=== PATIENT | female | born 1980 | race Caucasian/White ===

== ENCOUNTER 2017-07-07 08:25 | Emergency (ER) | payer OTHER ==
[2017-07-07 08:32] VITALS: BP 104/68; PULSE 106; TEMP 98.6; BMI 24.5
--- NOTE | 2017-07-07 09:21 | PDOC ---
History of Present Illness - General Chief Complaint: Cold Symptoms Stated Complaint: R/O FLU Time Seen by Provider: 07/07/17 08:55 History Source: Patient Exam Limitations: No Limitations - History of Present Illness Initial Comments: 07/07/17 09:18 36 yr female with c/o low back pain lower abd pain, sore throat started yesterday. Pt has no past medical history or allergies. pt took tylenol yesterday. Pt states her daughter and son with similair symptoms. Severity: reports: mild Possible Cause: Yes: no prior episodes Past History - Past Medical History Allergies/Adverse Reactions: Allergies Allergy/AdvReac Type Severity Reaction Status Date / Time No Known Allergies Allergy Verified 07/07/17 08:29 Home Medications: Ambulatory Orders Cephalexin Monohydrate [Keflex -] 250 mg PO Q6H #28 capsule 07/07/17 Ondansetron [Zofran Odt -] 4 mg SL TID PRN #21 od.tablet 07/07/17 Asthma: No Cancer: No Cardiac Disorders: No COPD: No Diabetes: No HTN: No Seizures: No Thyroid Disease: No - Suicide/Smoking/Psychosocial Hx Smoking History: Never smoked Have you smoked in the past 12 months: Yes Number of Cigarettes Smoked Daily: 2 If you are a former smoker, when did you quit?: 05/01/11 Information on smoking cessation initiated: Yes 'Breaking Loose' booklet given: 07/07/17 Hx Alcohol Use: No Drug/Substance Use Hx: No Substance Use Type: None Hx Substance Use Treatment: No Respiratory Specific PMHX - Complaint Specific PMHX Angina: No Bronchitis: No Pneumonia: No Pulmonary Embolus: No TB (Tuberculosis): No Review of Systems - Review of Systems Able to Perform ROS?: Yes Is the patient limited Croatian proficient: No *Physical Exam - Vital Signs Last Vital Signs Temp Pulse Resp BP Pulse Ox 98.6 F 106 H 18 104/68 100 07/07/17 08:30 07/07/17 08:30 07/07/17 08:30 07/07/17 08:30 07/07/17 08:30 - Physical Exam General Appearance: Yes: Nourished, Appropriately Dressed HEENT: positive: EOMI, TITUS, Pharyngeal Erythema, Tonsillar Erythema. negative : Tonsillar Exudate Neck: positive: Supple. negative: Lymphadenopathy (R), Lymphadenopathy (L) Respiratory/Chest: positive: Lungs Clear, Normal Breath Sounds. negative: Chest Tender Cardiovascular: positive: Regular Rhythm, Regular Rate Gastrointestinal/Abdominal: positive: Normal Bowel Sounds, Soft Musculoskeletal: positive: Normal Inspection Extremity: positive: Normal Capillary Refill, Normal Inspection, Normal Range of Motion Integumentary: positive: Normal Color, Dry, Warm Neurologic: positive: hypoid gear tester II-XII NML intact, Fully Oriented, Alert, Normal Mood/ Affect, Normal Response, Motor Strength 5/5 Medical Decision Making - Medical Decision Making 07/07/17 09:24 cc: back pain chills, sore throat headache denies urinary complaints LMP 2 weeks ago denies any vaginal discharge neg nvd will check for strep and influenza, pt did not have flu vaccine this year 07/07/17 09:43 negative strep and no FLU reagent in the lab, the lab notified us. so we are unable to do the FLU test, I informed the patient of this notification. pt is afebrile I have discussed with pt she most likely has UTI as she has blood in the urine and has vague low back pain . no evidence of pyelo. pt is non toxic flu like appearing. I offered tamiflu pt refused. 07/07/17 11:38 *DC/Admit/Observation/Transfer Diagnosis at time of Disposition: Viral illness Urinary tract infection Qualifiers: Urinary tract infection type: acute cystitis Hematuria presence: with hematuria Qualified Code(s): N30.01 - Acute cystitis with hematuria - Discharge Dispostion Disposition: HOME Condition at time of disposition: Good - Prescriptions Prescriptions: Cephalexin Monohydrate [Keflex -] 250 mg PO Q6H #28 capsule Ondansetron [Zofran Odt -] 4 mg SL TID PRN #21 od.tablet PRN Reason: Nausea And/Or Vomiting - Referrals - Patient Instructions Additional Instructions: take the antibiotic for 7 days as directed get pleanty of rest and take tylenol or motrin for pain as needed follow with [facility] in 2-3 days for follow up return if any worsening symptoms - Post Discharge Activity
[2017-07-07] MEDS ORDERED: ONDANSETRON *ODT* 4 MG TABLET SL ONE (09:22)
[2017-07-07] MEDS ORDERED: ONDANSETRON *ODT* 4 MG TABLET ONE (09:25)
[2017-07-07 09:33] LABS: HCG,QUALITATIVE URINE NEGATIVE
[2017-07-07 10:39] LABS: URINE APPEARANCE SLCLOUDY; URINE BILIRUBIN NEGATIVE (NEGATIVE); URINE BLOOD 2+ (NEGATIVE); URINE COLOR LTYELLOW; URINE GLUCOSE (UA) NEGATIVE (NEGATIVE); URINE KETONE NEGATIVE (NEGATIVE); URINE LEUK ESTERASE NEGATIVE (NEGATIVE); URINE NITRITE NEGATIVE (NEGATIVE); URINE PROTEIN NEGATIVE (NEGATIVE); URINE UROBILINOGEN NEGATIVE mg/dL (0.2-1.0)
[2017-07-07 10:55] LABS: EPI CELLS RARE /HPF (FEW)
--- NOTE | 2017-07-09 13:58 | PDOC ---
Patient Follow-up (Call Back) - Post ED Follow - Up Condition at time of discharge: Good Disposition at time of original discharge: HOME Reason for Call Back: Abnwl. Microbiology (group C strep on throat culture. pt. currently on keflex for UTI. Pt reports feeling much better and does not have a sore throat at this time. Will not change abx at this time. Told pt to continue with keflex and if she has any changes in her symptoms to see her PCP or return to the ED.)
== END 2017-07-07 11:37 | disposition home or self-care (01) ==
LOC: JERFT 08:25
DX: N30.01 Acute cystitis with hematuria (principal); B34.9 Viral infection, unspecified
CPT/HCPCS: 81003; 81015; 84703; 87070; 87077; 87430; 87804; 99281-25

== ENCOUNTER 2018-04-03 11:00 | Emergency (ER) | payer OTHER ==
[2018-04-03 11:10] VITALS: BP 113/75; PULSE 77; TEMP 98.9; BMI 25.1
[2018-04-03 11:20] LABS: URINE APPEARANCE CLEAR; URINE BILIRUBIN NEGATIVE (<2.0 mg/dL); URINE COLOR STRAW; URINE GLUCOSE (UA) NEGATIVE (NEGATIVE); URINE KETONE NEGATIVE (NEGATIVE); URINE LEUK ESTERASE NEGATIVE (NEGATIVE); URINE NITRITE NEGATIVE (NEGATIVE); URINE PROTEIN NEGATIVE (NEGATIVE); URINE UROBILINOGEN NEGATIVE mg/dL (0.2-1.0)
[2018-04-03 11:24] LABS: HCG,QUALITATIVE URINE Negative
--- NOTE | 2018-04-03 11:40 | PDOC ---
History of Present Illness - General Chief Complaint: Urinary Problem Stated Complaint: BACK PAIN Time Seen by Provider: 04/03/18 11:20 History Source: Patient Exam Limitations: No Limitations - History of Present Illness Travel History: No Initial Comments: 04/03/18 she came for evaluation of low back pain, frequency, hematuria, and fell smelling urine the past 2 days. Had urinary tract infection with similar symptoms last year. Also complains of some mild sore throat pain but no fevers, no exudate or cough. Timing/Duration: reports: constant Quality: reports: mild Abdominal Pain Onset Location: reports: suprapubic Pain Radiation: reports: no radiation Past History - Travel Traveled outside of the country in the last 30 days: No Close contact w/someone who was outside of country & ill: No - Past Medical History Allergies/Adverse Reactions: Allergies Allergy/AdvReac Type Severity Reaction Status Date / Time No Known Allergies Allergy Verified 07/07/17 08:29 Home Medications: Ambulatory Orders Cephalexin Monohydrate [Keflex -] 500 mg PO Q8H #21 capsule 04/03/18 Asthma: No Cancer: No Cardiac Disorders: No COPD: No Diabetes: No HTN: No Seizures: No Thyroid Disease: No - Suicide/Smoking/Psychosocial Hx Smoking History: Current some day smoker Have you smoked in the past 12 months: Yes Number of Cigarettes Smoked Daily: 2 If you are a former smoker, when did you quit?: 05/01/11 Information on smoking cessation initiated: No 'Breaking Loose' booklet given: 07/07/17 Hx Alcohol Use: No Drug/Substance Use Hx: No Substance Use Type: None Hx Substance Use Treatment: No Review of Systems - Review of Systems Able to Perform ROS?: Yes Is the patient limited [place] proficient: Yes Constitutional: Yes: Symptoms Reported, See HPI, Malaise. No: Fever HEENTM: Yes: Symptoms Reported, See HPI, Throat Pain, Throat Swelling, Difficulty Swallowing Respiratory: Yes: See HPI. No: Symptoms reported, Cough ABD/GI: Yes: Symptoms Reported, See HPI, Nausea. No: Vomiting : Yes: Symptoms Reported, See HPI, Dysuria, Hematuria, Urgency All Other Systems: Reviewed and Negative *Physical Exam - Vital Signs Last Vital Signs Temp Pulse Resp BP Pulse Ox 98.9 F 77 113/75 98 04/03/18 11:08 04/03/18 11:08 04/03/18 11:08 04/03/18 11:08 - Physical Exam General Appearance: Yes: Nourished, Appropriately Dressed, Mild Distress HEENT: positive: TITUS, Normal ENT Inspection, TMs Normal, Pharynx Normal, Rhinorrhea. negative: Tonsillar Erythema Neck: positive: Tender, Supple. negative: Lymphadenopathy (R), Lymphadenopathy (L) Respiratory/Chest: positive: Lungs Clear, Normal Breath Sounds Cardiovascular: positive: Regular Rate Gastrointestinal/Abdominal: positive: Normal Bowel Sounds, Soft. negative: Tender, Guarding, Rebound, Tenderness Musculoskeletal: positive: Normal Inspection Extremity: positive: Normal Capillary Refill, Normal Inspection, Normal Range of Motion Integumentary: positive: Normal Color, Dry, Warm ED Treatment Course - ADDITIONAL ORDERS Additional order review: Laboratory Results 04/03/18 11:00 Urine HCG, Qual Negative Progress Note - Progress Note Progress Note: Urinalysis did not show contaminated urine however patient's symptoms clinically indicated urinary tract infection therefore we'll treat with Keflex and will watch urine culture closely. Patient understands will call in 2 days to receive information about positive or negativity of culture and need to continue or discontinue antibiotics. *DC/Admit/Observation/Transfer Diagnosis at time of Disposition: Urinary tract infection Qualifiers: Urinary tract infection type: acute cystitis Hematuria presence: without hematuria Qualified Code(s): N30.00 - Acute cystitis without hematuria - Discharge Dispostion Disposition: HOME Condition at time of disposition: Stable Decision to Admit order: No - Prescriptions Prescriptions: Cephalexin Monohydrate [Keflex -] 500 mg PO Q8H #21 capsule - Referrals - Patient Instructions Printed Discharge Instructions: DI for Urinary Tract Infection (UTI) Additional Instructions: Rest, drink lots of fluids: Teas, water, soups Avoid contact with others until fevers and symptoms resolved Lots of handwashing and good hygiene Continue [id number] medications for symptomatic relief Tylenol or Motrin for fever and pain Continue all of antibiotics until completed Followup with private physician in one week for repeat urinalysis/reevaluation Return to emergency department for worsened symptoms, fevers, dehydration - Post Discharge Activity Forms/Work/School Notes: Back to Work
== END 2018-04-03 11:56 | disposition home or self-care (01) ==
LOC: JERFT 11:00
DX: N30.00 Acute cystitis without hematuria (principal)
CPT/HCPCS: 81003; 84703; 87086; 99281-25